=== PATIENT | female | born 2000 | race African-American/Black ===

== ENCOUNTER 2024-11-13 21:43 | Observation (INO) | payer OTHER, SELFPAY ==
--- NOTE | ~2024-11-13 | US_ITS ---
EXAMINATION: US OB limited w BPP DATE: 11/14/2024 07:57 INDICATION: Late cardiac decelerations during third trimester . TECHNIQUE: Real-time pelvic ultrasound was performed. The interpreting radiologist was not present fo r the study. COMPARISON: None. FINDINGS: There is a single living fetus in vertex presentation. The placenta is anterior fundal. heart rate is 150 beats per minute (bpm). Normal amniotic fluid index of 12.1 cm (5th%-95%: 7.5-24.4 cm at 37 weeks estimated gestational age) Biophysical profile performed by the technologist: breathing (30 sec sustained breathing in 30 minutes): 2 out of 2 movement (3 gross body movements in 30 minutes): 2 out of 2 tone (one episode of vfnuflh-dslgxoksi-bxpyxfr limb movement): 2 out of 2 Amniotic fluid pocket (2 cm): 2 out of 2 Total score: 8 out of 8 IMPRESSION: 1. Single living fetus in vertex presentation with heart rate of 150 bpm. 2. Biophysical profile 8 out of 8. 3. Normal amniotic fluid index of 12.1 cm. Reviewed, dictated and finalized at location A.
[2024-11-13 22:15] VITALS: BP 119/64; PULSE 71
[2024-11-13 22:30] VITALS: BP 114/70; PULSE 69
[2024-11-13 22:45] VITALS: BP 117/72; PULSE 61
[2024-11-13 23:00] VITALS: BP 116/77; PULSE 62
[2024-11-13 23:15] VITALS: BP 113/84; PULSE 64
[2024-11-13 23:30] VITALS: BP 116/78; PULSE 79
[2024-11-13] MEDS: LACTATED RINGERS 1,000 ML 999 ML IV CONT (23:40)
[2024-11-14] VITALS: TEMP 36.9
[2024-11-14] MEDS: LACTATED RINGERS 1,000 ML 125 ML IV CONT (01:00)
--- NOTE | 2024-11-14 01:03 | OBADM ---
This patient, Danita Arias, admitted to the OB room Labor/Delivery/Recovery 105 for observation. Patient/family oriented to hospital policies and general routines including ID bracelet, bed and alarms, visiting hours, pain management, procedures, bathroom and other care routines, personal items, smoking policy, room service/diet, and visiting hours. Patient/Family are encouraged to report perceived risks to care and to ask questions if they do not understand what they are told or what they should do.
[2024-11-14 04:00] VITALS: TEMP 36.8
[2024-11-14 04:31] VITALS: BP 102/51; PULSE 73
[2024-11-14 06:20] VITALS: BP 110/48; PULSE 72; TEMP 37.1
--- NOTE | 2024-11-14 06:38 | PM.IMHP ---
H&P: HPI History of Present Illness Date/Time: 11/14/24 06:38 Chief Complaint: Contractions Narrative: This is 24 year para 0 presents 36 and 6 7 weeks gestation contractions she was watched the is she some variable as ultrasound physical scheduled for this. has been otherwise uncomplicated Review of Systems Review of Systems: All systems reviewed & are unremarkable except as noted in HPI and below PMFSH Social History Social History Do You Feel Safe in your Home?: Yes Lack of Transportation: No Lack of Food: Never True Current Housing: I Have Housing Concerned About Future Housing: No Difficulty Paying Gas/Electric Bills: No Difficulty Paying for Meds: No Currently Unemployed: No Education: High School Diploma/GED Difficulty w/ Childcare or Family Care: No Meds Vital Signs Vital Signs - 24 hr 11/13/24 22:15 11/13/24 22:30 11/13/24 22:45 Temperature Pulse Rate 71 69 61 Blood Pressure 119/64 114/70 117/72 11/13/24 23:00 11/13/24 23:15 11/13/24 23:30 Temperature Pulse Rate 62 64 79 Blood Pressure 116/77 113/84 116/78 11/14/24 00:00 11/14/24 04:00 11/14/24 04:31 Temperature 98.5 F 98.2 F Pulse Rate 73 Blood Pressure 102/51 L 11/14/24 06:20 Temperature 98.7 F Pulse Rate 72 Blood Pressure 110/48 L Exam Const: General: cooperative, healthy appearing, comfortable and well groomed Nutritional Appearance: average body habitus Orientation/consciousness: oriented to person, oriented to place and oriented to time HENMT: Head: normal to inspection Resp: Effort & Inspection: normal respiratory effort Cardio: Rate: regular rate Rhythm: regular rhythm Heart sounds: S1 normal heart sound present and S2 normal heart sound present GI: Inspection: normal to inspection (Gravid soft uterus) Assessment and Plan Assessment and plan (1) labor: Code(s): O60.00 - labor without delivery, unspecified trimester Status: Acute Plan In light of the variable decelerations, patient will undergo biophysical profile today
--- NOTE | 2024-11-15 08:23 | PM.OBTRLD ---
OB - Triage/Final Diagnosis Visit Information Date of evaluation: 11/14/24 Reason for evaluation: threatened labor Comments/Additional reasons for admission: I have assessed the risk for this patient, Danita Arias, and determined that she would benefit from observation care.
== END 2024-11-14 08:35 | disposition home or self-care (01) ==
PROVIDERS: Admitting Provider Obstetrics & Gynecology; Visit Provider Obstetrics & Gynecology
DX: O47.03 False labor before 37 completed weeks of gestation, third trimester (principal); Z3A.36 36 weeks gestation of pregnancy
CPT/HCPCS: 76815; 76819; G0378; G0379; J7120

== ENCOUNTER 2024-11-16 10:21 | Observation (INO) | payer OTHER, MEDICAID, SELFPAY ==
[2024-11-16] VITALS (28 sets, daily range): BP systolic 102–117; BP diastolic 50–79; PULSE 78–108; TEMP 36.6; O2SAT 95–100
--- NOTE | ~2024-11-16 | US_ITS ---
EXAMINATION: US OB BPP wo non-stress DATE: 11/16/2024 13:32 INDICATION: Decreased movement TECHNIQUE: Real-time pelvic ultrasound was performed. The interpreting radiologist was not present fo r the study. COMPARISON: None. FINDINGS: There is a single living fetus in vertex presentation. The placenta is anterior fundal. heart rate is 150 beats per minute (bpm). Normal amniotic fluid index of 10.9 cm (5th%-95%: 7.5-24.4 cm at 37 weeks estimated gestational age). Biophysical profile performed by the technologist: breathing (30 sec sustained breathing in 30 minutes): 2 out of 2 movement (3 gross body movements in 30 minutes): 2 out of 2 tone (one episode of anxzwnz-wgfruawmk-qbbiqme limb movement): 2 out of 2 Amniotic fluid pocket (2 cm): 2 out of 2 Total score: 8 out of 8 IMPRESSION: 1. Single living fetus in vertex presentation with heart rate of 150 bpm. 2. Biophysical profile 8 out of 8. 3. Normal amniotic fluid index of 10.9 cm. Reviewed, dictated and finalized at location A.
--- NOTE | 2024-11-16 12:16 | OBADM ---
This patient, Danita Arias, admitted to the OB room Labor/Delivery/Recovery 103 for observation. Patient/family oriented to hospital policies and general routines including ID bracelet, bed and alarms, visiting hours, pain management, procedures, bathroom and other care routines, personal items, smoking policy, room service/diet, and visiting hours. Patient/Family are encouraged to report perceived risks to care and to ask questions if they do not understand what they are told or what they should do.
--- NOTE | 2024-11-17 08:32 | PM.OBTRLD ---
OB - Triage/Final Diagnosis Visit Information Reason for evaluation: threatened labor Comments/Additional reasons for admission: I have assessed the risk for this patient, Danita Arias, and determined that she would benefit from observation care. Evaluation Vital signs: Vital Signs - 24 hr 11/16/24 11:00 11/16/24 11:08 11/16/24 11:13 Temperature Pulse Rate 86 Blood Pressure 117/79 Pulse Oximetry 100 100 11/16/24 11:15 11/16/24 11:18 11/16/24 11:23 Temperature Pulse Rate 88 Blood Pressure 107/75 Pulse Oximetry 100 99 11/16/24 11:28 11/16/24 11:30 11/16/24 11:35 Temperature Pulse Rate 87 Blood Pressure 116/70 Pulse Oximetry 100 99 99 11/16/24 11:40 11/16/24 11:45 11/16/24 11:50 Temperature Pulse Rate 93 Blood Pressure 112/66 Pulse Oximetry 99 98 100 11/16/24 11:55 11/16/24 12:00 11/16/24 12:05 Temperature Pulse Rate 91 Blood Pressure 115/74 Pulse Oximetry 100 99 100 11/16/24 12:10 11/16/24 12:16 11/16/24 12:21 Temperature Pulse Rate 78 Blood Pressure 102/54 L Pulse Oximetry 100 95 99 11/16/24 12:24 11/16/24 12:29 11/16/24 12:30 Temperature Pulse Rate 79 Blood Pressure 102/50 L Pulse Oximetry 100 100 11/16/24 12:34 11/16/24 12:39 11/16/24 12:44 Temperature Pulse Rate Blood Pressure Pulse Oximetry 100 98 98 11/16/24 12:45 11/16/24 12:49 11/16/24 12:53 Temperature 97.9 F Pulse Rate 82 Blood Pressure 104/59 L Pulse Oximetry 100 11/16/24 12:54 Temperature Pulse Rate Blood Pressure Pulse Oximetry 99
== END 2024-11-16 13:35 | disposition home or self-care (01) ==
PROVIDERS: Admitting Provider Obstetrics & Gynecology; Visit Provider Obstetrics & Gynecology
DX: O47.1 False labor at or after 37 completed weeks of gestation (principal); Z3A.37 37 weeks gestation of pregnancy
CPT/HCPCS: 76819; G0378; G0379

== ENCOUNTER 2024-11-22 02:14 | Observation (INO) | payer OTHER, SELFPAY ==
--- NOTE | 2024-11-23 18:24 | PM.OBTRLD ---
OB - Triage/Final Diagnosis Visit Information Reason for evaluation: threatened labor Comments/Additional reasons for admission: I have assessed the risk for this patient, Danita Arias, and determined that she would benefit from observation care.
== END 2024-11-22 07:50 | disposition home or self-care (01) ==
LOC: ANHOBOP 07:10 → ANHLDR 07:20
PROVIDERS: Admitting Provider Obstetrics & Gynecology; Visit Provider Obstetrics & Gynecology
DX: O47.9 False labor, unspecified (principal)
CPT/HCPCS: G0378; G0379

== ENCOUNTER 2024-12-07 17:01 | Outpatient (RCR) | payer OTHER, SELFPAY ==
[2024-12-05 16:18] VITALS: BP 123/72; PULSE 89
[2024-12-07 20:03] VITALS: BP 126/71; PULSE 87
== END 2024-12-15 13:39 | disposition other institution (70) ==
LOC: ANHOBOP 17:01
PROVIDERS: Visit Provider Obstetrics & Gynecology
DX: O36.8130 Decreased fetal movements, third trimester, not applicable or unspecified (principal); Z3A.39 39 weeks gestation of pregnancy; Z3A.40 40 weeks gestation of pregnancy
CPT/HCPCS: 59025

== ENCOUNTER 2024-12-07 23:35 | Inpatient (IN) | payer OTHER, MEDICAID, SELFPAY ==
[2024-12-08] VITALS (248 sets, daily range): BP systolic 79–146; BP diastolic 48–91; PULSE 54–155; RESP 14; TEMP 36.6–37.9; O2SAT 66–100; BMI 30.7
--- NOTE | 2024-12-08 00:19 | PM.IMHP ---
H&P: HPI History of Present Illness Date/Time: 12/08/24 00:19 Chief Complaint: Induction of labor at term Narrative: 24-year-old 1 para 0 last menstrual period unknown, EDC is 12/06/2024, confirmed by 10 week ultrasound presents at 40 weeks gestation for induction of labor. She is negative for group B strep passed her diabetic screen blood has been otherwise uncomplicated Review of Systems Review of Systems: All systems reviewed & are unremarkable except as noted in HPI and below PMFSH Social History Social History Do You Feel Safe in your Home?: Yes Lack of Transportation: No Lack of Food: Never True Current Housing: I Have Housing Concerned About Future Housing: No Difficulty Paying Gas/Electric Bills: No Difficulty Paying for Meds: No Currently Unemployed: No Education: High School Diploma/GED Difficulty w/ Childcare or Family Care: No Meds Vital Signs Vital Signs - 24 hr 12/08/24 00:02 12/08/24 00:03 Pulse Rate 92 Blood Pressure 107/74 Pulse Oximetry 100 100 Exam Const: General: cooperative, healthy appearing and comfortable Nutritional Appearance: average body habitus Orientation/consciousness: oriented to person, oriented to place and oriented to time HENMT: Head: normal to inspection Resp: Effort & Inspection: normal respiratory effort Cardio: Rate: regular rate Rhythm: regular rhythm Heart sounds: S1 normal heart sound present and S2 normal heart sound present GI: Inspection: normal to inspection (Gravid soft uterus) : External Female Exam: normal external appearance Speculum Exam - Vagina: normal appearance of the vagina Speculum Exam - Cervix: normal appearance of the cervix (Cervix 1 soft and thick. heart tones reassuring) Assessment and Plan Assessment and plan (1) Term : Code(s): Z34.90 - Encounter for supervision of normal , unspecified, unspecified trimester Status: Acute Plan Medical induction of labor. Spontaneous vaginal delivery expected. She is an epidural candidate
--- NOTE | 2024-12-08 00:35 | LDADM ---
This patient, Danita Arias, was admitted to Labor/Delivery/Recovery 107 on 12/07/24 at 23:35. Plans for labor, pain management and were discussed with patient. Patient/family oriented to hospital policies and general routines including ID bracelet, bed and alarms, visiting hours, pain management, procedures, bathroom and other care routines, personal items, smoking policy, room service/diet and guest tray routines, infant security routines, and visiting hours. Patient/Family are encouraged to report perceived risks to care and to ask questions if they do not understand what they are told or what they should do. See OBIX for further documentation.
[2024-12-08 00:39] LABS: Hematocrit 30.7 % (37.0-47.0); Hemoglobin 10.0 g/dL (12.0-15.0); Immature Granulocyte Percent A 1.4 % (0-0.5); Lymphocytes Absolute Auto 2.03 K/mm3 (0.9-3.2); Mean Corpuscular HGB Conc 32.6 g/dl (32-36); Mean Corpuscular Hemoglobin 31.1 pg (26-34); Mean Corpuscular Volume 95.3 fl (80-100); Nucleated Red Blood Cells Absolute Auto 0.000 K/mm3 (0.0-0.012); Nucleated Red Blood Cells Perc 0.0 % (0.0-0.2); Platelet Count Result 214 k/mm3 (150-375); Red Blood Count 3.22 M/mm3 (4.2-5.4); White Blood Count 8.5 K/mm3 (4.5-10.0)
[2024-12-08] MEDS: DINOPROSTONE 10 MG VAG INSERT VAGINAL (00:41)
[2024-12-08 01:06] LABS: Syphilis IgG/IgM Antibody Non-Reactive (Nonreactive)
[2024-12-08] MEDS: OXYTOCIN 30 UNITS/NS 500 ML 30 UNITS/500 ML BAG IV CONT (07:12)
[2024-12-08] MEDS: LACTATED RINGERS 1,000 ML 125 ML IV CONT ×3 (07:16→16:34)
--- NOTE | 2024-12-08 07:25 | PM.OBPNLAB ---
Pain Control Date/time seen: 12/08/24 07:25 Pain control: tolerating well Pelvic Exam Dilation (cm): 2 Effacement (%): 50 station: -2 Amniotic membrane status: Leaking
--- NOTE | 2024-12-08 12:32 | PM.OBPNLAB ---
Pain Control Date/time seen: 12/08/24 12:32 Pain control: tolerating well and epidural Pelvic Exam Dilation (cm): 5 Effacement (%): 60 station: -2 Amniotic membrane status: Leaking
--- NOTE | 2024-12-08 13:05 | P.PNAN_ITS ---
Anes - Eval Pre Procedure Procedure: labor epidural Date/Time: 12/08/24 13:05 Surgeon: oneida Preop Diagnosis: pain during labor Pre Op Diagnosis: IOL Patient Data Age: 24 Gender: F Height: Weight: Last Vital Signs Temp 36.6 C 12/08/24 11:16 Pulse 69 12/08/24 13:01 BP 105/59 L 12/08/24 13:01 Pulse Ox 100 12/08/24 13:01 O2 Del Method Room Air 12/08/24 08:00 Allergies Allergy/AdvReac Type Severity Reaction Status Date / Time No Known Allergies Allergy Verified 12/08/24 12:57 Laboratory Tests 12/08/24 00:21 WBC 8.5 K/mm3 (4.5-10.0) RBC 3.22 L M/mm3 (4.2-5.4) Hgb 10.0 L g/dL (12.0-15.0) Hct 30.7 L % (37.0-47.0) MCV 95.3 fl (80-100) MCH 31.1 pg (26-34) MCHC 32.6 g/dl (32-36) RDW 14.0 % (11.5-14.5) Plt Count 214 k/mm3 (150-375) MPV 11.8 H fl (7.4-10.4) Immature Gran % (Auto) 1.4 H % (0-0.5) Neut % (Auto) 63.4 % (45.5-73.1) Lymph % (Auto) 23.9 % (18.3-44.2) [place] % (Auto) 9.8 H % (2.6-8.5) Eos % (Auto) 1.1 % (0-4.4) Baso % (Auto) 0.4 % (0.2-1.2) Lymph # (Auto) 2.03 K/mm3 (0.9-3.2) [place] # (Auto) 0.8 H K/mm3 (0.1-0.6) Eos # (Auto) 0.1 K/mm3 (0-0.3) Baso # (Auto) 0.0 K/mm3 (0.0-0.1) Abs Immat Gran (auto) 0.12 H K/mm3 (0.00-0.031) Absolute Neuts (auto) 5.4 K/mm3 (1.3-6.7) Absolute Nucleated RBC 0.000 K/mm3 (0.0-0.012) Nucleated RBC % 0.0 % (0.0-0.2) Syphilis IgG/IgM Ab Non-reactive (Nonreactive) Blood Type O Positive Antibody Screen Negative Patient hx anesthesia problems: none Family hx anesthesia problems: none Results Review: All pre-operative results and documents have been reviewed as part of the pre- operative evaluation. [facility] Social History Social History Smoking status: Never smoker Second hand tobacco smoke exposure: No Do You Feel Safe in your Home?: Yes Lack of Transportation: No Lack of Food: Never True Current Housing: I Have Housing Concerned About Future Housing: No Difficulty Paying Gas/Electric Bills: No Difficulty Paying for Meds: No Currently Unemployed: No Education: High School Diploma/GED Difficulty w/ Childcare or Family Care: No Exam Day of Procedure 12/08/24 13:05
--- NOTE | 2024-12-08 16:03 | PM.OBPNLAB ---
Pain Control Date/time seen: 12/08/24 16:03 Pain control: tolerating well and epidural Pelvic Exam Dilation (cm): 6 Effacement (%): 70 station: -2 Amniotic membrane status: Leaking
[2024-12-08] MEDS: ONDANSETRON INJ 4 MG/2 ML VIAL IV PUSH (19:17)
--- NOTE | 2024-12-08 19:50 | PM.OBPRVD ---
OB - Vaginal Delivery Note Procedure Delivery date: 12/08/24 Events: Elective Induction of Labor Induction method: Per Cervidil Protocol Delivery augmentation: Rupture of Membranes and Pitocin Delivery monitor: External FHT and Internal Uterine Route of delivery: Episiotomy description: None Laceration Description: Perineal - 2nd Degree Delivery repair: vicryl Specimen: No Quantitative Blood Loss (ml): 162 Anesthesia type: Epidural Disposition: Floor Complications: No immediate complications Narrative: Patient was admitted for induction of labor at term Cervidil was placed on the evening prior to delivery. In the a.m. artificial rupture membranes performed. Epidural anesthesia was placed and internal uterine monitors were noted when she was complete, she pushed delivered head spontaneously in the ERIC position and nuchal cord checked noted none was found anterior posterior shoulder delivered spontaneously. Cord clamped x2 and cut and passed off table given Apgars of 8 [id number] 9 [id number]. Cord blood was drawn. Placenta delivered intact spontaneously. Twenty of Pitocin placed IV to help firm the uterus. A second-degree laceration was noted this was closed with layered 3-0 Vicryl for. QBL was 162cc. All sponge, needle, instrument counts were correct. There were no immediate complications Baby Date of : 12/08/24 Time of : 19:36 Gestational Age by Date: 39 Infant gender: Female presentation: vertex position: Right Occiput Anterior Placenta delivery description: Spontaneous Cord Vessel Description: 3 Vessels score one minute: 8 score five minutes: 9
--- NOTE | 2024-12-08 19:53 | P.DS_ITS ---
DS: Admitting Diagnosis Discharge Date 12/10/2024 Admitting Diagnosis Term DS: Discharge Diagnosis Discharge Diagnosis (1) Term : Code(s): Z34.90 - Encounter for supervision of normal , unspecified, unspecified trimester Status: Acute DS: Summary Hospital Course Reason for hospitalization: Patient was admitted for Cervidil induction on 12/07/2024 and underwent spontaneous vaginal delivery on 12/08/2024. Hospital Course: Patient's hospital course unremarkable. She remained afebrile. She was up, voiding without difficulty, eating regular diet, ambulating, and generally w ithout complaints. Time Spent with Patient Time attestation: Total time spent providing and/or coordinating discharge services: Exam Const: General: cooperative, healthy appearing and comfortable Nutritional Appearance: average body habitus Orientation/consciousness: oriented to person, oriented to place and oriented to time HENMT: Head: normal to inspection Resp: Effort & Inspection: normal respiratory effort Cardio: Rate: regular rate Rhythm: regular rhythm Heart sounds: S1 normal heart sound present and S2 normal heart sound present GI: Inspection: normal to inspection (Gravid soft uterus) : External Female Exam: normal external appearance Speculum Exam - Vagina: normal appearance of the vagina Speculum Exam - Cervix: normal appearance of the cervix (Cervix 1 soft and thick. heart tones reassuring) DS: Data Data Completed and Pending Labs on day of discharge: Labs from last 24 hours 12/08/24 00:21 WBC 8.5 RBC 3.22 L Hgb 10.0 L Hct 30.7 L MCV 95.3 MCH 31.1 MCHC 32.6 RDW 14.0 Plt Count 214 MPV 11.8 H Immature Gran % (Auto) 1.4 H Neut % (Auto) 63.4 Lymph % (Auto) 23.9 [place] % (Auto) 9.8 H Eos % (Auto) 1.1 Baso % (Auto) 0.4 Lymph # (Auto) 2.03 [place] # (Auto) 0.8 H Eos # (Auto) 0.1 Baso # (Auto) 0.0 Abs Immat Gran (auto) 0.12 H Absolute Neuts (auto) 5.4 Absolute Nucleated RBC 0.000 Nucleated RBC % 0.0 Syphilis IgG/IgM Ab Non-reactive Blood Type O Positive Antibody Screen Negative Discharge Plan Discharge Attending physician on discharge: Sonu Lehman Discharging Clinician: Sonu Lehman Patient Disposition: Home Activity: may shower, no straining and pelvic rest Diet: heart healthy Wound Care Instructions: follow printed instructions Patient Instructions: Antibiotic Form Patient Language: [place] Stand Alone Forms: General Discharge Information Follow-up/Referrals: Sonu Lehman MD [Physician, ADVERTISING PRODUCTION MANAGER] Date of admission: 12/07/24 23:35 Primary Care Provider: UNKNOWN,DOCTOR Admitting Provider: Sonu Lehman Attending physician on admission: Sonu Lehman Condition: Stable
[2024-12-08] MEDS: METHYLERGONOVINE MALEATE 0.2 MG/ML VIAL IM (19:55)
[2024-12-08] MEDS: OXYTOCIN 30 UNITS/NS 500 ML 30 UNITS/500 ML BAG 125 UNITS IV CONT (20:07)
[2024-12-08] MEDS: IBUPROFEN 600 MG TABLET PO (21:24)
[2024-12-08] MEDS: ACETAMINOPHEN 325 MG TABLET 650 MG PO (23:00)
--- NOTE | 2024-12-08 23:35 | OBPPTRN ---
Patient transferred to post room #280 via wheelchair. Support person present. Oriented to unit, room, information board, rooming in, admission packet and security measures. Patient verbalizes understanding.
[2024-12-09 04:15] VITALS: BP 125/75; PULSE 81; RESP 14; TEMP 37.2; O2SAT 100
[2024-12-09] MEDS: ACETAMINOPHEN 325 MG TABLET 650 MG PO ×3 (05:04→18:00)
[2024-12-09] MEDS: IBUPROFEN 600 MG TABLET (05:04)
[2024-12-09 05:10] LABS: Hematocrit 33.6 % (37.0-47.0); Hemoglobin 10.4 g/dL (12.0-15.0)
--- NOTE | 2024-12-09 07:06 | P.PNOB_ITS ---
OB - PN: Subj Subjective Date/time seen: 12/09/24 07:06 Patient comments: no complaints, pain well controlled and tolerating diet [place] baby status: doing well OB - PN: Obj Data Labs 12/09/24 03:58 Labs: Laboratory Results - last 24 hr 12/09/24 03:58 Hgb 10.4 L Hct 33.6 L OB - PN A/P Assessment and Plan (1) Term : Code(s): Z34.90 - Encounter for supervision of normal , unspecified, unspecified trimester Status: Acute Plan routine care Time Spent With Patient Time: Total time spent is greater than 50% in coordination of care (as documented) at patient's floor/unit and/or counseling patient: Review of Systems 2 Review of Systems: All systems reviewed & are unremarkable except as noted in HPI and below Exam 2 Const: General: cooperative, healthy appearing and comfortable Nutritional Appearance: average body habitus Orientation/consciousness: oriented to person, oriented to place and oriented to time HENMT: Head: normal to inspection Resp: Effort & Inspection: normal respiratory effort Cardio: Rate: regular rate Rhythm: regular rhythm Heart sounds: S1 normal heart sound present and S2 normal heart sound present GI: Inspection: normal to inspection (Gravid soft uterus) : External Female Exam: normal external appearance Speculum Exam - Vagina: normal appearance of the vagina Speculum Exam - Cervix: normal appearance of the cervix (Cervix 1 soft and thick. heart tones reassuring)
[2024-12-09 07:30] VITALS: BP 107/62; PULSE 58; RESP 18; TEMP 37.1; O2SAT 99
[2024-12-09] MEDS: DOCUSATE SODIUM 100 MG CAPSULE PO (07:40)
[2024-12-09] MEDS: MULTIVIT/MIN/PREN/FOL AC/IRON TABLET 1 TAB PO (07:40)
[2024-12-09] MEDS: IBUPROFEN 600 MG TABLET PO ×2 (11:35→18:00)
[2024-12-09 12:31] VITALS: BP 105/57; PULSE 70; RESP 16; TEMP 36.9; O2SAT 98
--- NOTE | 2024-12-09 15:41 | PC.NURSE ---
1520.Introductions were made, then consulted with patient to assess needs related to . Discussed with mother her plans to feed her infant and the experience so far. Breast pump provided due to moms feeding intention is pumping and bottle feeding infant. [employer] medical pump provided to mom due to her stating she does not have a pump at home. Instructions given on cleaning, care, usage, that there should be no pain, pumping schedule for milk production, collection, and storage of human milk. Patient was assessed for correct placement, flange size, to pump for comfort and nipple stretching/stimulation for adequate milk production every 3 hours (8 times in 24 hours) 1-2 times at night. Parents are encouraged to record the pumping schedule on the feeding sheet.?Mother voiced understanding of the education shared along with mom/baby guide and the pump measurement, flange fit handout for additional resource information. Mom was also referred to WIC per her request. Mom encouraged to call the phone number with questions or concerns. Reported to the Primary RN.
[2024-12-09 19:00] VITALS: BP 114/76; PULSE 81; RESP 17; TEMP 36.5; O2SAT 100
[2024-12-10] MEDS: ACETAMINOPHEN 325 MG TABLET 650 MG PO ×2 (00:53→07:53)
[2024-12-10] MEDS: IBUPROFEN 600 MG TABLET PO ×2 (00:53→07:53)
--- NOTE | 2024-12-10 06:31 | P.PNOB_ITS ---
OB - PN: Subj Subjective Date/time seen: 12/10/24 06:31 Patient comments: no complaints, pain well controlled and tolerating diet [place] baby status: doing well OB - PN: Obj Data Labs 12/09/24 03:58 OB - PN A/P Assessment and Plan (1) Term : Code(s): Z34.90 - Encounter for supervision of normal , unspecified, unspecified trimester Status: Acute Plan Comments: home follow up 6 weeks Time Spent With Patient Time: Total time spent is greater than 50% in coordination of care (as documented) at patient's floor/unit and/or counseling patient: Review of Systems 2 Review of Systems: All systems reviewed & are unremarkable except as noted in HPI and below Exam 2 Const: General: cooperative, healthy appearing and comfortable Nutritional Appearance: average body habitus Orientation/consciousness: oriented to person, oriented to place and oriented to time HENMT: Head: normal to inspection Resp: Effort & Inspection: normal respiratory effort Cardio: Rate: regular rate Rhythm: regular rhythm Heart sounds: S1 normal heart sound present and S2 normal heart sound present GI: Inspection: normal to inspection (Gravid soft uterus) : External Female Exam: normal external appearance Speculum Exam - Vagina: normal appearance of the vagina Speculum Exam - Cervix: normal appearance of the cervix (Cervix 1 soft and thick. heart tones reassuring)
[2024-12-10 07:47] VITALS: BP 113/75; PULSE 80; RESP 14; TEMP 36.6; O2SAT 98
[2024-12-10] MEDS: DOCUSATE SODIUM 100 MG CAPSULE PO (07:53)
[2024-12-10] MEDS: MULTIVIT/MIN/PREN/FOL AC/IRON TABLET 1 TAB PO (07:53)
[2024-12-10] MEDS: TETANUS,DIPHTHERIA,AC PERTUSSIS ADULT (0.5 ML) BOOSTRIX IM (07:54)
--- NOTE | 2024-12-10 08:30 | PC.NURSE ---
Consulted with mother concerning needs and she shared her ability to independently pump without pain. Mother is feeding appropriately for growth of and understands stimulating to eat if needed. Infant has had appropriate feedings in the last 24 hours meets the outcomes for weight, output, blood sugar and jaundice at this time. Reinforced understanding of milk production, transition of milk, prevention/relief of engorgement, community resources ([facility] referral faxed), and when to call a provider using the resource of the feeding sheet along with the mom and baby guide. Mother voiced understanding of the information shared, is confident to continue effectively pumping and bottle feeding her infant at home, when to call for assistance, denies any additional assistance or education at this time. Reported to the Primary RN.
--- NOTE | 2024-12-10 10:05 | PC.NURSE ---
Patient viewed the discharge video Mother & Baby Care, The First Two Weeks. Patient was given the opportunity and encouraged to ask questions. Patient verbalized understanding of information shared and has been given the mother/baby guide for home reference.
[2024-12-12 08:20] VITALS: BP 120/75; PULSE 73; RESP 18; TEMP 37.2; O2SAT 100
== END 2024-12-10 12:35 | disposition home or self-care (01) | DRG 807 ==
LOC: ANHLDR 12-08 19:54 → ANHOB2 12-08 22:38
PROVIDERS: Admitting Provider Obstetrics & Gynecology; Visit Provider Obstetrics & Gynecology
DX: O69.81X0 Labor and delivery complicated by cord around neck, without compression, not applicable or unspecified (principal); Z37.0 Single live birth; Z3A.40 40 weeks gestation of pregnancy; O77.0 Labor and delivery complicated by meconium in amniotic fluid; O70.1 Second degree perineal laceration during delivery
CPT/HCPCS: 36415; 59025; 85014; 85018; 85025; 86593; 86850; 86900; 86901; 90715; A9270; J2210; J2405; J2590; J2795; J7120